=== PATIENT | female | born 1965 | race Caucasian/White ===

== ENCOUNTER 2016-08-31 08:47 | Day surgery (SDC) | payer OTHER ==
[2016-08-27 13:18] VITALS: BMI 24.1
[2016-08-31 08:35] VITALS: TEMP 98.2
[2016-08-31 08:53] LABS: BASOPHIL 0.8 % (0-2.0); EOSINOPHIL 1.2 % (0-4.5); MCH 28.4 pg (25.7-33.7); MCHC 32.9 g/dl (32.0-36.0); MEAN CELL VOLUME 86.1 fl (80-96); MEAN PLT VOLUME 8.1 fl (7.5-11.1); NEUTROPHILS 68.6 % (42.8-82.8); PLATELET COUNT 291 K/MM3 (134-434); WHITE BLOOD COUNT 8.6 K/mm3 (4.0-10.0)
[2016-08-31 09:09] LABS: INR 0.98 (0.82-1.09); PROTHROMBIN TIME (PATIENT) 10.8 SEC (9.98-11.88)
[2016-08-31 15:52] VITALS: BP 147/90; PULSE 82
--- NOTE | 2016-09-01 13:44 | PATH ---
Cytology Non-Gynecological Report Patient Name: KYALA METZ [facility]. Rec. #: [id number] /Age/Gender: 1965 (Age: 51) / F Account: [id number] Location: RADIOLOGY Taken: 08/31/2016 Received: 08/31/2016 Reported: 09/01/2016 Physicians: Jimena Connolly M.D. Specimen(s) Received RIGHT NECK MASS Clinical History Right neck mass Final Diagnosis RIGHT NECK MASS, FINE NEEDLE ASPIRATION: BENIGN APPEARING SQUAMOUS CELLS, KERATINACEOUS MATERIAL AND MARKED ACUTE INFLAMMATION (SEE COMMENT). Comment: The smears and the cell block showing benign appearing squamous cell, keratinaceous material, and numerous neutrophils. No significant cytological atypia is seen. The findings may represent an inflamed epidermoid cyst in proper clinical settings. Clinical and imaging correlations and followup are suggested. Electronically Signed Clemente Heredia M.D. Gross Description Received is 50 cc of villarreal-yellow viscous fluid fresh. One side of the slide and one sha block are made.
--- NOTE | 2016-09-02 15:54 | PATH ---
Cytology Non-Gynecological Report Patient Name: KAYLA METZ [facility]. Rec. #: [id number] /Age/Gender: 1965 (Age: 51) / F Account: [id number] Location: RADIOLOGY Taken: 09/01/2016 Received: 09/01/2016 Reported: 09/02/2016 Physicians: Bal Queen M.D. Specimen(s) Received RIGHT NECK MASS Clinical History Right neck mass Final Diagnosis RIGHT NECK MASS, FINE NEEDLE ASPIRATION: SATISFACTORY FOR EVALUATION. BENIGN (NO MALIGNANT CELLS IDENTIFIED). BENIGN SQUAMOUS CELLS, NEUTROPHILS, AND DEBRIS PRESENT. Comment: The findings may represent an infected squamous lined cyst. Recommend correlation with clinical and radiologic findings and followup as clinically indicated. Also see prior specimen [id number]. Electronically Signed Robert Bosch M.D. Gross Description Received in a lavender top tube is approximately 10 cc of straw-colored fluid. One direct smear, 1 cytofunnel, and one cell block prepared.
== END 2016-08-31 13:00 | disposition home or self-care (01) ==
LOC: JRADIR 08:47
PROVIDERS: ATTEND Otolaryngology Facial Plastic Surgery
PROC: 0J943ZX Drainage of Right Neck Subcutaneous Tissue and Fascia, Percutaneous Approach, Diagnostic (ICD-10-PCS; principal; 2016-08-31)
PROC: BH4CZZZ Ultrasonography of Head and Neck (ICD-10-PCS; 2016-08-31)
DX: D36.7 Benign neoplasm of other specified sites (principal)
CPT/HCPCS: 36415; 76942-TC; 85025; 85610; 87070; 87075; 87102; 87116; 87205; 87206; 87210; 88108; 88173; 88305-TC

== ENCOUNTER 2020-06-02 10:20 | Emergency (ER) | payer OTHER ==
[2020-06-02 10:40] VITALS: PULSE 76; BMI 23.3
[2020-06-02 13:29] VITALS: BP 126/79; TEMP 97.3
== END 2020-06-02 12:30 | disposition home or self-care (01) ==
LOC: JER 10:20
DX: R20.2 Paresthesia of skin (principal); T50.Z95A Adverse effect of other vaccines and biological substances, initial encounter
CPT/HCPCS: 70450-TC; 99284-25

== ENCOUNTER 2024-11-27 14:30 | Emergency (ER) | payer OTHER ==
[2024-11-27 14:36] VITALS: BP 120/70; PULSE 78; RESP 18; TEMP 98.2; BMI 22.3
[2024-11-27 15:50] LABS: MCHC 32.0 g/dl (32.2-35.5); MEAN CELL VOLUME 90.1 fl (79.4-94.8); MEAN PLT VOLUME 10.7 fl (9.4-12.3); RDW 13.2 % (12.4-16.4)
[2024-11-27] MEDS ORDERED: ACETAMINOPHEN 500 MG TABLET (FP) ONE (16:00)
[2024-11-27] MEDS: ACETAMINOPHEN 500 MG TABLET (FP) PO ONE (16:04)
[2024-11-27 16:09] LABS: GLUCOSE,RANDOM 85.0 mg/dL (74-106)
[2024-11-27 16:10] LABS: TOT PROT 7.7 g/dl (6.4-8.2)
[2024-11-27 16:11] LABS: CO2 26.0 mmol/L (21-32)
[2024-11-27 16:13] LABS: ALK PHOS 102.0 U/L (40-150)
[2024-11-27 16:15] LABS: CREATININE 0.68 mg/dL (0.55-1.3); SGOT/AST 30.0 U/L (5-34); SGPT/ALT 28.0 U/L (0-55)
[2024-11-27 16:35] LABS: HCV DIAGNOSTIC IN-HOUSE W/RFLX NON-REACTIVE (NONREACTIVE)
[2024-11-27 16:36] LABS: HIV INTERPRETATION NEGATIVE (NEGATIVE)
== END 2024-11-27 18:15 | disposition home or self-care (01) ==
LOC: JER 14:30
PROC: 2W3RX1Z Immobilization of Left Lower Leg using Splint (ICD-10-PCS; principal; 2024-11-27)
DX: S82.832A Other fracture of upper and lower end of left fibula, initial encounter for closed fracture (principal); S80.211A Abrasion, right knee, initial encounter; R42 Dizziness and giddiness; W01.0XXA Fall on same level from slipping, tripping and stumbling without subsequent striking against object, initial encounter; Y92.000 Kitchen of unspecified non-institutional (private) residence as the place of occurrence of the external cause
CPT/HCPCS: 29515; 36415; 70450-TC; 71045-TC-FY; 73562-TC-LT-FY; 73610-TC-LT-FY; 73630-TC-LT; 80053; 82962; 84484; 85025; 86803; 87389; 93005; 93010; 99285-25